=== PATIENT | female | born 1970 | race Caucasian/White ===

== ENCOUNTER → 2016-12-16 | Outpatient (CLI) | payer OTHER ==
[~2016-12-16] MED LIST: LORTAB PO; OXYCODONE HCL 55 MG PO; ZOFRAN ODT4 MG PO
== END ==
LOC: RAD 03:44
DX: N63 Unspecified lump in breast (principal)

== ENCOUNTER → 2018-06-08 | Outpatient (CLI) | payer OTHER | LOC: ULTRA 08:04 | DX: N60.01 Solitary cyst of right breast (principal); N60.02 Solitary cyst of left breast ==

== ENCOUNTER → 2018-07-07 | Outpatient (CLI) | payer OTHER | LOC: RAD 08:48 | DX: M19.072 Primary osteoarthritis, left ankle and foot (principal) ==

== ENCOUNTER → 2019-03-23 | Outpatient (CLI) | payer OTHER | LOC: ULTRA 01:39 | DX: N60.02 Solitary cyst of left breast (principal); N60.01 Solitary cyst of right breast ==

== ENCOUNTER → 2019-08-31 | Outpatient (CLI) | payer OTHER | LOC: RAD 06:49 | DX: Z12.31 Encounter for screening mammogram for malignant neoplasm of breast (principal) ==

== ENCOUNTER → 2019-12-20 | Outpatient (CLI) | payer OTHER | LOC: ULTRA 08:55 | PROVIDERS: ATTEND Nurse Practitioner | DX: N83.01 Follicular cyst of right ovary (principal); D25.9 Leiomyoma of uterus, unspecified; N88.8 Other specified noninflammatory disorders of cervix uteri; Z90.49 Acquired absence of other specified parts of digestive tract ==